=== PATIENT | female | born 1970 | race Two or more races ===

== ENCOUNTER 2018-09-27 14:31 | Outpatient (CLI) | payer BC | END 2018-09-27 23:59 | disposition home or self-care (01) | LOC: CFH 14:31 | PROVIDERS: ATTEND Internal Medicine Cardiovascular Disease | DX: I08.8 Other rheumatic multiple valve diseases (principal) | CPT/HCPCS: 93306 ==

== ENCOUNTER → 2019-11-29 | Outpatient (CLI) | payer MEDICAID ==
[~2019-11-29] MED LIST: CALC1CAP8 PO; ropinirole PO
[2019-11-29 11:43] LABS: BASOPHILS # (AUTO) 0.08 x10^3/uL (0-0.1); BASOPHILS % (AUTO) 1 % (0-1); EOSINOPHILS # (AUTO) 0.23 x10^3/uL (0-0.4); EOSINOPHILS % (AUTO) 3 % (1-7); LYMPHOCYTES # (AUTO) 1.85 x10^3/uL (1-3.4); LYMPHOCYTES % (AUTO) 27 % (22-44); MD NO; MEAN CORPUSCULAR HEMOGLOBIN 29.8 pg (27.0-34.8); MEAN CORPUSCULAR HGB CONC 34.2 g/dL (32.4-35.8); MEAN CORPUSCULAR VOLUME 87.1 fL (80-100); MONOCYTES # (AUTO) 0.66 x10^3/uL (0.2-0.8); MONOCYTES % (AUTO) 10 % (2-9); NEUTROPHILS # (AUTO) 3.99 x10^3/uL (1.8-6.8); NEUTROPHILS % (AUTO) 59 % (42-75); PLATELET COUNT 223 x10^3/uL (130-400); RED BLOOD COUNT 4.75 x10^6/uL (3.82-5.3); RED CELL DISTRIBUTION WIDTH 13.7 % (9.6-15.2)
[2019-11-29 11:48] LABS: MICROSCOPIC AUTO
[2019-11-29 11:53] LABS: ALANINE AMINOTRANSFERASE 29 U/L (12-78); ALBUMIN 4.1 g/dL (3.4-5.0); ANION GAP 3 mmol/L (5-15); CHLORIDE 109 mmol/L (98-107); CREATININE 0.63 mg/dL (0.55-1.02)
[2019-11-29 11:57] LABS: ALKALINE PHOSPHATASE 87 U/L (45-117); BILIRUBIN,TOTAL 0.4 mg/dL (0.2-1.0); TOTAL PROTEIN 7.9 g/dL (6.4-8.2)
== END | disposition home or self-care (01) ==
LOC: STAR 10:37
PROVIDERS: ATTEND Obstetrics & Gynecology
DX: Z01.818 Encounter for other preprocedural examination (principal); R10.2 Pelvic and perineal pain; R10.9 Unspecified abdominal pain; N83.202 Unspecified ovarian cyst, left side
CPT/HCPCS: 36415; 80053; 81001; 84702; 85025; 87086

== ENCOUNTER 2019-12-07 10:37 | Day surgery (SDC) | payer BC, MEDICAID ==
[~2019-12-07] VITALS: Ht 154.9 cm; Wt 61.2 kg
[2019-12-07] MEDS ORDERED: LACTATED RINGERS 1,000 ML IV SCH (10:51)
[2019-12-07] MEDS ORDERED: CHLORHEXIDINE 15 ML UDC MM STA (10:51)
[2019-12-07] MEDS ORDERED: ACETAMINOPHEN 500 MG TABLET PO STA (10:52)
[2019-12-07 10:57] VITALS: BP 113/76
[2019-12-07] MEDS ORDERED: FENTANYL PF 250 MCG/5ML ONE (12:00)
[2019-12-07] MEDS ORDERED: MIDAZOLAM 1 MG/ML, 2ML ONE (12:00)
[2019-12-07] MEDS ORDERED: BUPIVACAINE/PF 0.25% ONE (12:23)
[2019-12-07] MEDS ORDERED: EPINEPHRINE 1 MG/ML, 1ML ONE (12:24)
[2019-12-07] MEDS ORDERED: PROPOFOL 50 ML ONE (12:54)
[2019-12-07] MEDS ORDERED: GLYCOPYRROLATE 0.2MG/1ML, 5ML ONE (13:32)
[2019-12-07] MEDS ORDERED: NEOSTIGMINE 1 MG/ML, 10ML ONE (13:32)
[2019-12-07] MEDS ORDERED: DEXAMETHASONE 4 MG/ML, 1ML ONE (13:32)
[2019-12-07] MEDS ORDERED: ONDANSETRON 2MG/ML, 2ML ONE (13:32)
[2019-12-07] MEDS ORDERED: PROPOFOL 10 MG/ML, 20ML ONE (13:32)
[2019-12-07] MEDS ORDERED: SUCCINYLCHOLINE 20 MG/ML, 10ML ONE (13:32)
[2019-12-07] MEDS ORDERED: CEFAZOLIN 1,000 MG ONE (13:32)
[2019-12-07] MEDS ORDERED: ROCURONIUM 10MG/ML,5ML ONE (13:32)
[2019-12-07] MEDS ORDERED: EPHEDRINE 50 MG/ML, 1ML IVPush PRN (14:00)
[2019-12-07] MEDS ORDERED: HYDROmorphone 1 MG/ML, 1ML INJ IVPush PRN (14:00)
[2019-12-07] MEDS ORDERED: hydrALAzine 20 MG/ML, 1ML IV PRN (14:00)
[2019-12-07] MEDS ORDERED: FENTANYL PF 100 MCG/2ML IV PRN (14:00)
[2019-12-07] MEDS ORDERED: PROMETHAZINE 12.5 MG SUPP PR PRN (14:00)
[2019-12-07] MEDS ORDERED: ACETAMINOPHEN 325 MG TABLET PO PRN (14:00)
[2019-12-07] MEDS ORDERED: OXYcodone 5 MG/5 ML ORAL.SOL UDC PO PRN (14:00)
[2019-12-07] MEDS ORDERED: MEPERIDINE/PF 25MG/0.5ML IVPush PRN (14:00)
[2019-12-07] MEDS ORDERED: LORazepam 2 MG/ML, 1ML IVPush PRN (14:00)
[2019-12-07] MEDS ORDERED: LABETALOL 5MG/ML, 20ML IV PRN (14:00)
[2019-12-07] MEDS ORDERED: ESMOLOL 100 MG/10 ML ONE (15:24)
== END 2019-12-07 15:50 | disposition home or self-care (01) ==
LOC: OUT 10:37
PROVIDERS: ATTEND Obstetrics & Gynecology
DX: N83.202 Unspecified ovarian cyst, left side (principal); Z20.828 Contact with and (suspected) exposure to other viral communicable diseases; N83.12 Corpus luteum cyst of left ovary; N83.02 Follicular cyst of left ovary; N80.1 Endometriosis of ovary; N80.3 Endometriosis of pelvic peritoneum; N73.6 Female pelvic peritoneal adhesions (postinfective); G89.29 Other chronic pain; R10.2 Pelvic and perineal pain; F41.9 Anxiety disorder, unspecified; Z90.710 Acquired absence of both cervix and uterus; Z90.721 Acquired absence of ovaries, unilateral; Z90.79 Acquired absence of other genital organ(s); Z98.890 Other specified postprocedural states; Z82.49 Family history of ischemic heart disease and other diseases of the circulatory system; Z80.9 Family history of malignant neoplasm, unspecified; Z83.42 Family history of familial hypercholesterolemia
CPT/HCPCS: 36415; 58661; 87635; 88305; J0171; J0330; J0690; J1100; J2250; J2405; J2704; J2710; J3010; J3490; J7120